=== PATIENT | female | born 1960 | race Caucasian/White ===

== ENCOUNTER → 2017-04-11 | Outpatient (CLI) | payer OTHER | LOC: BMCIMAGING 12:40 | PROVIDERS: ATTEND Family Medicine | DX: Z12.31 Encounter for screening mammogram for malignant neoplasm of breast (principal) | CPT/HCPCS: G0202 ==

== ENCOUNTER 2018-06-15 12:54 | Emergency (ER) | payer OTHER ==
--- NOTE | 2018-06-15 12:53 | EDPHY ---
H & P Time Seen by Provider: 06/15/18 12:52 HPI/ROS: CHIEF COMPLAINT: Right-sided weakness and difficulty speaking HISTORY OF PRESENT ILLNESS: Was at the doctor's office getting a lidocaine injection in her neck and developed sudden right sided weakness and difficulty with speaking. Injection was on the left C6-7 region for a"pinched nerve"in symptoms started immediately afterwards. Was brought in by EMS as a stroke alert with right- sided weakness and difficulty speaking without facial droop or headache, normal glucose prior to arrival. Arrival the patient says she that feels funny and has difficulty speaking. For me she says her left side feels weaker than her right. Symptoms all started at exactly 12:17 p.m. In the office. Severe on arrival. REVIEW OF SYSTEMS: Eye: no change in vision or double vision ENT: no sore throat Cardiac: no syncope. Has had some ongoing central chest pain for at least the last week. Not exertional or positional. Pulmonary: no cough or SOB Abdomen: no vomiting, diarrhea, abdominal pain Musculoskeletal: Neck and left shoulder pain for which she received the injection, unchanged. Skin: no rash Neuro: no headache Constitutional: no fever : no urinary symptoms A comprehensive 10 point review of systems is otherwise negative aside from elements mentioned in the history of present illness. PAST MEDICAL HISTORY: As in HPI otherwise negative Negative for diabetes hypercholesterolemia or being treated for hypertension. Social history: Here with her , nonsmoker General Appearance: Alert, cooperative with exam. Eyes: No scleral icterus. Pupils equal and reactive extraocular motion intact. ENT, Mouth: Normal mucous membranes. Respiratory: Normal respiratory effort, breath sounds equal, lungs are clear to auscultation. Cardiovascular: Regular rate and rhythm. Gastrointestinal: Abdomen is soft and non tender. Neurological: Alert, can lift her left arm up the bed but has weak manager systems strength. Has difficulty lifting her left leg up. Has slurred speech. Is able to move all 4 extremities. Responds appropriately to commands. Knows her name and age and what happened. Skin: Warm and dry, no rashes. Musculoskeletal: No peripheral edema. Psychiatric: Not agitated. Emergency Department course/MDM: 1309: seen by Dr. Li from [place], no tpA as reaction lidocaine more likely than ischemic stroke. Recommends supportive care, serial exam, CT angiography, no IV Activase. Discharge if returns to neurologic baseline and workup is negative. 1405: negative CTA head and neck per Dr. Culver. 1445: Feels fine now, normal speech and strength. We discussed her 1 week of central chest pain which is atypical. It is worse when she tried to lift a heavy object today. Her heart score 0 or 1 for history, and 1 for age only. I do not think acute coronary syndrome or pulmonary embolism is likely. She would like to go home which I think is reasonable. She is warned not to have lidocaine again as she clearly had a bad adverse reaction today. She will check her blood pressure and follow up with her primary care doctor this week if she does not return to baseline in the next 48 hr. T 36.6 noted, afebrile. Blood pressure now down to 166/111, very close to her home baseline which she attributes to being chronically high because of her left neck and shoulder pain. Constitutional: Initial Vital Signs Heart Rate 85 06/15/18 13:02 Respiratory Rate 16 06/15/18 13:02 Blood Pressure 221/145 H 06/15/18 13:02 O2 Sat (%) 93 06/15/18 13:02 O2 Delivery Mode Room Air Allergies/Adverse Reactions: No Allergies [NKDA] Allergy (Verified 04/03/12 15:56) Home Medications: Medication Instructions Recorded Famotidine [Pepcid 40mg] 40 mg PO .DAILY #10 tablet 04/03/12 No Medications [NO HOME 1 ea MISC 04/03/12 MEDICATIONS] predniSONE 60 mg PO .DAILY #9 tab 04/03/12 Medical Decision Making - Diagnostics EKG Interpretation: 12-lead EKG interpreted by me; official reading is in computer system. My interpretation is sinus rhythm with left atrial enlargement, borderline left axis. Imaging Results: Imaging Impressions Head CT 06/15/18 12:55 Impression: Normal brain. No acute intracranial hemorrhage or evidence of ischemia. Findings discussed with Emergency Department physician, DERRICK HAWKINS at 2017 13:02. Head CTA 06/15/18 13:10 Impression: Hypoplastic right vertebral artery. Otherwise, normal CT angiogram of the head and neck. Stenoses are calculated using [place] Symptomatic Carotid Endarterectomy Trial (NASCET) criteria. Findings and recommendations discussed with DERRICK HAWKINS at 1405 hour, 2017. Neck CTA 09/10/18 13:10 Impression: Hypoplastic right vertebral artery. Otherwise, normal CT angiogram of the head and neck. Stenoses are calculated using [place] Symptomatic Carotid Endarterectomy Trial (NASCET) criteria. Findings and recommendations discussed with DERRICK HAWKINS at 1405 hour, 2017. Imaging: Discussed imaging studies w/ call manager Radiologist Differential Diagnosis: Differential considered including but not limited to lidocaine reaction, stroke , seizure, intracranial mass or bleed, hypertensive emergency. - Data Points Laboratory Results: Laboratory Results 06/15/18 13:00 06/15/18 13:00 06/15/18 06/15/18 06/15/18 13:00 13:00 13:00 WBC 6.15 10^3/uL 10^3/uL (3.80-9.50) RBC 4.86 10^6/uL 10^6/uL (4.18-5.33) Hgb 15.5 g/dL g/dL (12.6-16.3) Hct 46.2 % % (38.0-47.0) MCV 95.1 fL fL (81.5-99.8) MCH 31.9 pg pg (27.9-34.1) MCHC 33.5 g/dL g/dL (32.4-36.7) RDW 12.9 % % (11.5-15.2) Plt Count 267 10^3/uL 10^3/uL (150-400) MPV 10.1 fL fL (8.7-11.7) Neut % (Auto) 72.2 % % (39.3-74.2) Lymph % (Auto) 18.0 % % (15.0-45.0) [place] % (Auto) 9.1 % % (4.5-13.0) Eos % (Auto) 0.2 % L % (0.6-7.6) Baso % (Auto) 0.3 % % (0.3-1.7) Nucleat RBC Rel Count 0.0 % % (0.0-0.2) Absolute Neuts (auto) 4.44 10^3/uL 10^3/uL (1.70-6.50) Absolute Lymphs (auto) 1.11 10^3/uL 10^3/uL (1.00-3.00) Absolute Monos (auto) 0.56 10^3/uL 10^3/uL (0.30-0.80) Absolute Eos (auto) 0.01 10^3/uL L 10^3/uL (0.03-0.40) Absolute Basos (auto) 0.02 10^3/uL 10^3/uL (0.02-0.10) Absolute Nucleated RBC 0.00 10^3/uL 10^3/uL (0-0.01) Immature Gran % 0.2 % % (0.0-1.1) Immature Gran # 0.01 10^3/uL 10^3/uL (0.00-0.10) PT 13.9 SEC SEC (12.0-15.0) INR 1.05 (0.83-1.16) Sodium 141 mEq/L mEq/L (135-145) Potassium 3.7 mEq/L mEq/L (3.3-5.0) Chloride 106 mEq/L mEq/L (97-110) Carbon Dioxide 23 mEq/l mEq/l (22-31) Anion Gap 12 mEq/L mEq/L (8-16) BUN 15 mg/dL mg/dL (7-23) Creatinine 0.9 mg/dL mg/dL (0.6-1.0) Estimated GFR > 60 Glucose 105 mg/dL H mg/dL (70-100) Calcium 11.0 mg/dL H mg/dL (8.5-10.4) Phosphorus 2.5 mg/dL mg/dL (2.5-4.5) POC Troponin I 06/15/18 12:58 WBC RBC Hgb Hct MCV MCH MCHC RDW Plt Count MPV Neut % (Auto) Lymph % (Auto) [place] % (Auto) Eos % (Auto) Baso % (Auto) Nucleat RBC Rel Count Absolute Neuts (auto) Absolute Lymphs (auto) Absolute Monos (auto) Absolute Eos (auto) Absolute Basos (auto) Absolute Nucleated RBC Immature Gran % Immature Gran # PT INR Sodium Potassium Chloride Carbon Dioxide Anion Gap BUN Creatinine Estimated GFR Glucose Calcium Phosphorus POC Troponin I 0.00 ng/mL ng/mL (0.00-0.08) Medications Given: Discontinued Medications Labetalol HCl (Trandate Injection) 20 mg IVP EDNOW ONE Stop: 06/15/18 12:56 Last Admin: 06/15/18 13:00 Dose: 20 mg Point of Care Test Results: Chemistry 06/15/18 12:58 POC Troponin I 0.00 ng/mL ng/mL (0.00-0.08) Departure - Departure Disposition: Home, Routine, Self-Care Clinical Impression: Adverse reaction to lidocaine Hypertension Qualifiers: Hypertension type: unspecified Qualified Code(s): I10 - Essential (primary) hypertension Condition: Good Instructions: Adverse Drug Reaction (ED), Hypertension (ED) Additional Instructions: Please follow-up with your doctor for blood pressure does not return to baseline in the next 48 hr. You had a serious adverse reaction to lidocaine today, you should not receive this drug again. You should tell any future healthcare providers that you are not to receive lidocaine or related drugs in the future. Referrals: Paulina Garcia MD [Primary Care Provider] - As per Instructions
[2018-06-15] MEDS ORDERED: LABETALOL HCL 5 MG/ML 20 ML MDV IVP ONE (12:55)
[2018-06-15 13:20] LABS: INR 1.05 (0.83-1.16); PLATELET COUNT 267 10^3/uL (150-400); PROTIME(PATIENT) 13.9 SEC (12.0-15.0)
--- NOTE | 2018-06-15 13:29 | PDCONSULT ---
Supervisor Cl[employer] Winding Note: [facility] Note Demographics Consult Type: Acute Stroke First Name: Mitzi Last Name: Jasbir Date of : 1960 Age: 58 Referring Provider: Dr Baires Time of initial page (): 06/15/2018 12:56 Time of return call (): 06/15/2018 12:59 Time Ready to Initiate Telemed Consult ( Time): 06/15/2018 12:59 HPI Additional History (Free Text): 58 year old woman with history of left cervical radiculopathy. She was receiving an injection treatment for this problem when she developed sudden dizziness lightheadedness and generalized weakness. She was having trouble talking and was sent to the emergency room for evaluation. Stroke alert was activated based on the signs reported above. She is seen upon return from CT scanner. She is talking slowly and with effort but alert and able to interact. helps with history at bedside. She denies LOC or associated nausea or diaphoresis. She is hypertensive but not on medications as she is reported to "not always" have high BP. Exam Vitals: vital signs reviewed SBP: 221 Mental Status: awake, follows commands Language: slow but intact langauge Cranial Nerves: extra ocular movements intact, no facial droop Motor: normal bulk, no drift, effortful exam but intact. Sensory: normal sensation Cerebellar: effortful but accurate finger to nose NIHSS Time (): 06/15/2018 13:01 LOC 1a: 0 = Alert; keenly responsive LOC 1b: 0 = Answers both questions correctly LOC Commands: 0 = Performs both tasks correctly Best Gaze: 0 = Normal Visual: 0 = No visual loss Facial Palsy: 0 = Normal symmetrical movements Motor Arm L: 0 = No drift; limb holds 90 (or 45) degrees for full 10 seconds Motor Arm R: 0 = No drift; limb holds 90 (or 45) degrees for full 10 seconds Motor Leg L: 0 = No drift; leg holds 30-degree position for full 5 seconds Motor Leg R: 0 = No drift; leg holds 30-degree position for full 5 seconds Limb Ataxia: 0 = Absent Sensory: 0 = Normal; no sensory loss Best Language: 0 = No aphasia; normal Dysarthria: 0 = Normal Extinction + Inattention: 0 = No abnormality NIHSS: [address]: no bleed Assessment:Near syncope and generalized weakness. Non focal on exam and doubt cerebral ischemia. Would check CTA to exclude possible dissection and eval for complication related to injection Plan Imaging: CTA Head and Neck Other: telemetry monitoring, I have discussed my recommendations with the referring provider Additional Recommendations: observe in ED. If CTA OK and feeling better may be able to DC. Disposition: observation Logistics Telemedicine: Interactive 2 way audio and visual telecommunication technology was utilized during this visit. Provider Location: [place] Patient Location: [facility]
--- NOTE | 2018-06-15 13:47 | CPEKG ---
Test Reason : OPEN Blood Pressure : / mmHG Vent. Rate : 075 BPM Atrial Rate : 075 BPM P-R Int : 167 ms QRS Dur : 097 ms QT Int : 371 ms P-R-T Axes : 058 -19 049 degrees QTc Int : 415 ms Sinus rhythm Probable left atrial enlargement Borderline left axis deviation Minimal ST elevation, inferior leads Confirmed by Mikey Baires ([id number]) on 06/15/2018 1:46:50 PM Referred By: Confirmed By:Mikey Baires
[2018-06-15 14:31] VITALS: BP 166/111
== END 2018-06-15 15:06 | disposition home or self-care (01) ==
LOC: EDUNIT#
DX: R47.81 Slurred speech (principal); T41.3X5A Adverse effect of local anesthetics, initial encounter; I65.09 Occlusion and stenosis of unspecified vertebral artery; I10 Essential (primary) hypertension
CPT/HCPCS: 84484-PO; 96374